=== PATIENT | female | born 1935 | race Caucasian/White ===

== ENCOUNTER 2021-01-01 09:12 | Inpatient (IN) | payer BC, MEDICARE ==
[2021-01-01] MEDS ORDERED: DEXAMETHASONE SOD PHOSPHATE 10 MG/ML 1 ML VIAL IV STA (09:23)
[2021-01-01] MEDS ORDERED: ALBUTEROL HFA INHALER INHALATION STA (09:24)
--- NOTE | 2021-01-01 09:39 | ED ---
General Adult HPI - General Chief complaint: Altered Mental Status Stated complaint: AMS Time Seen by Provider: 01/01/21 09:15 Source: patient, EMS, RN notes reviewed, old records reviewed Mode of arrival: EMS Limitations: altered mental status - History of Present Illness Initial comments: 85-year-old female presents for evaluation of altered mental status. Patient was transported by EMS, stroke scale was negative. According to EMS and the patient's family that she had noted to have some increased slurred speech this morning but has had a steady decline over the past several weeks. History is limited patient is able to answer some simple questions. She has no pain complaints. No headache. No chest pain. There is no reported fever. No na usea or vomiting. No focal numbness or weakness reported. - Related Data Home Medications Medication Instructions Recorded Confirmed Cholecalciferol [Vitamin D3 (25 25 mcg PO DAILY 01/01/21 01/01/21 Mcg = 1000 Iu)] Ferrous Sulfate [Feosol] 325 mg PO DAILY 01/01/21 01/01/21 Multivit-Min/Iron/Folic/Lutein 1 tab PO DAILY 01/01/21 01/01/21 [Centrum Silver Women Tablet] [place]-3 Fatty Acids/Fish Oil [Fish 1 cap PO DAILY 01/01/21 01/01/21 Oil 1,000 mg Softgel] Verapamil HCl [Verapamil ER] 120 mg PO DAILY 01/01/21 01/01/21 Allergies Allergy/AdvReac Type Severity Reaction Status Date / Time No Known Allergies Allergy Verified 01/01/21 10:45 Review of Systems ROS Statement: Those systems with pertinent positive or pertinent negative responses have been documented in the HPI. ROS Other: All systems not noted in ROS Statement are negative. Past Medical History Past Medical History: Hyperlipidemia, Hypertension History of Any Multi-Drug Resistant Organisms: None Reported Past Surgical History: No Surgical Hx Reported Past Psychological History: No Psychological Hx Reported Smoking Status: Never smoker Past Alcohol Use History: None Reported Past Drug Use History: None Reported General Exam General appearance: lethargic Head exam: Present: atraumatic, normocephalic Eye exam: Present: normal appearance, PERRL ENT exam: Present: mucous membranes dry Neck exam: Present: normal inspection. Absent: tenderness, meningismus Respiratory exam: Present: wheezes, decreased breath sounds. Absent: respiratory distress Cardiovascular Exam: Present: regular rate, normal rhythm GI/Abdominal exam: Present: soft. Absent: distended, tenderness, guarding Extremities exam: Present: pedal edema Neurological exam: Present: alert. Absent: oriented X3, motor sensory deficit Psychiatric exam: Present: normal affect, normal mood Skin exam: Present: warm, dry Course Vital Signs 01/01/21 01/01/21 01/01/21 09:13 09:53 10:47 Temperature 98.4 F Pulse Rate 77 86 Respiratory 20 22 Rate Blood Pressure 152/62 125/77 O2 Sat by Pulse 80 L 100 100 Oximetry EKG Findings - EKG Comments: EKG Findings:: EKG: Normal sinus rhythm, rightward axis, rate of 85, [place] interval 170, QRS duration 88, QTC 44, no ST segment elevation. Medical Decision Making - Medical Decision Making Head CT negative for intracranial hemorrhage or mass effect, shows chronic thaddeus nges with volume loss. Patient has normal CBC, CMP showing normal kidney function, elevated bicarbonate, which she does have a venous gas showing CO2 of 64. Urinalysis is positive. Chest x-ray shows a masslike density. Patient will be admitted for further evaluation and treatment multifactorial altered mental status. Case discussed with Dr. Reyes - Lab Data Result diagrams: 01/01/21 09:32 01/01/21 09:32 Lab Results 01/01/21 01/01/21 01/01/21 Range/Units 09:32 09:32 09:32 WBC 7.0 (3.8-10.6) k/uL RBC 3.98 (3.80-5.40) m/uL Hgb 12.3 (11.4-16.0) gm/dL Hct 36.9 (34.0-46.0) % MCV 92.7 (80.0-100.0) fL MCH 30.9 (25.0-35.0) pg MCHC 33.3 (31.0-37.0) g/dL RDW 13.6 (11.5-15.5) % Plt Count 197 (150-450) k/uL MPV 7.0 Neutrophils % 79 % Lymphocytes % 12 % Monocytes % 5 % Eosinophils % 2 % Basophils % 0 % Neutrophils # 5.5 (1.3-7.7) k/uL Lymphocytes # 0.9 L (1.0-4.8) k/uL Monocytes # 0.4 (0-1.0) k/uL Eosinophils # 0.2 (0-0.7) k/uL Basophils # 0.0 (0-0.2) k/uL PT 10.3 (9.0-12.0) sec INR 1.0 (<1.2) APTT 23.7 (22.0-30.0) sec VBG pH (7.31-7.41) VBG pCO2 (37-51) mmHg VBG HCO3 (24-28) mmol/L Sodium (137-145) mmol/L Potassium (3.5-5.1) mmol/L Chloride (98-107) mmol/L Carbon Dioxide (22-30) mmol/L Anion Gap mmol/L BUN (7-17) mg/dL Creatinine (0.52-1.04) mg/dL Est GFR (CKD-EPI)AfAm (>60 ml/min/1.73 sqM) Est GFR (CKD-EPI)NonAf (>60 ml/min/1.73 sqM) Glucose (74-99) mg/dL POC Glucose (mg/dL) (75-99) mg/dL POC Glu Dog Boarder ID Plasma Lactic Acid Oneil (0.7-2.0) mmol/L Calcium (8.4-10.2) mg/dL Total Bilirubin (0.2-1.3) mg/dL AST (14-36) U/L ALT (4-34) U/L Alkaline Phosphatase (38-126) U/L Lactate Dehydrogenase (313-618) U/L Troponin I (0.000-0.034) ng/mL C-Reactive Protein (<10.0) mg/L NT-Pro-B Natriuret Pep pg/mL Total Protein (6.3-8.2) g/dL Albumin (3.5-5.0) g/dL Urine Color Yellow Urine Appearance Cloudy H (Clear) Urine pH 6.0 (5.0-8.0) Ur Specific [place] 1.020 (1.001-1.035) Urine Protein 1+ H (Negative) Urine Glucose (UA) Negative (Negative) Urine Ketones Negative (Negative) Urine Blood Small H (Negative) Urine Nitrite Positive H (Negative) Urine Bilirubin Negative (Negative) Urine Urobilinogen <2.0 (<2.0) mg/dL Ur Leukocyte Esterase Trace H (Negative) Urine RBC 12 H (0-5) /hpf Urine WBC 14 H (0-5) /hpf Urine Bacteria Moderate H (None) /hpf Urine Mucus Occasional H (None) /hpf Coronavirus (PCR) (Not Detectd) 01/01/21 01/01/21 01/01/21 Range/Units 09:32 09:32 09:32 WBC (3.8-10.6) k/uL RBC (3.80-5.40) m/uL Hgb (11.4-16.0) gm/dL Hct (34.0-46.0) % MCV (80.0-100.0) fL MCH (25.0-35.0) pg MCHC (31.0-37.0) g/dL RDW (11.5-15.5) % Plt Count (150-450) k/uL MPV Neutrophils % % Lymphocytes % % Monocytes % % Eosinophils % % Basophils % % Neutrophils # (1.3-7.7) k/uL Lymphocytes # (1.0-4.8) k/uL Monocytes # (0-1.0) k/uL Eosinophils # (0-0.7) k/uL Basophils # (0-0.2) k/uL PT (9.0-12.0) sec INR (<1.2) APTT (22.0-30.0) sec VBG pH (7.31-7.41) VBG pCO2 (37-51) mmHg VBG HCO3 (24-28) mmol/L Sodium 137 (137-145) mmol/L Potassium 5.0 (3.5-5.1) mmol/L Chloride 97 L (98-107) mmol/L Carbon Dioxide 36 H (22-30) mmol/L Anion Gap 4 mmol/L BUN 23 H (7-17) mg/dL Creatinine 0.80 (0.52-1.04) mg/dL Est GFR (CKD-EPI)AfAm 77 (>60 ml/min/1.73 sqM) Est GFR (CKD-EPI)NonAf 67 (>60 ml/min/1.73 sqM) Glucose 106 H (74-99) mg/dL POC Glucose (mg/dL) (75-99) mg/dL POC Glu Dog Boarder ID Plasma Lactic Acid [place] (0.7-2.0) mmol/L Calcium 9.5 (8.4-10.2) mg/dL Total Bilirubin 0.8 (0.2-1.3) mg/dL AST 51 H (14-36) U/L ALT 26 (4-34) U/L Alkaline Phosphatase 116 (38-126) U/L Lactate Dehydrogenase 734 H (313-618) U/L Troponin I <0.012 (0.000-0.034) ng/mL C-Reactive Protein 14.9 H (<10.0) mg/L NT-Pro-B Natriuret Pep pg/mL Total Protein 7.4 (6.3-8.2) g/dL Albumin 4.2 (3.5-5.0) g/dL Urine Color Urine Appearance (Clear) Urine pH (5.0-8.0) Ur Specific [place] (1.001-1.035) Urine Protein (Negative) Urine Glucose (UA) (Negative) Urine Ketones (Negative) Urine Blood (Negative) Urine Nitrite (Negative) Urine Bilirubin (Negative) Urine Urobilinogen (<2.0) mg/dL Ur Leukocyte Esterase (Negative) Urine RBC (0-5) /hpf Urine WBC (0-5) /hpf Urine Bacteria (None) /hpf Urine Mucus (None) /hpf Coronavirus (PCR) Not Detected (Not Detectd) 01/01/21 01/01/21 01/01/21 Range/Units 09:32 09:32 09:38 WBC (3.8-10.6) k/uL RBC (3.80-5.40) m/uL Hgb (11.4-16.0) gm/dL Hct (34.0-46.0) % MCV (80.0-100.0) fL MCH (25.0-35.0) pg MCHC (31.0-37.0) g/dL RDW (11.5-15.5) % Plt Count (150-450) k/uL MPV Neutrophils % % Lymphocytes % % Monocytes % % Eosinophils % % Basophils % % Neutrophils # (1.3-7.7) k/uL Lymphocytes # (1.0-4.8) k/uL Monocytes # (0-1.0) k/uL Eosinophils # (0-0.7) k/uL Basophils # (0-0.2) k/uL PT (9.0-12.0) sec INR (<1.2) APTT (22.0-30.0) sec VBG pH 7.33 (7.31-7.41) VBG pCO2 64 H (37-51) mmHg VBG HCO3 33 H (24-28) mmol/L Sodium (137-145) mmol/L Potassium (3.5-5.1) mmol/L Chloride (98-107) mmol/L Carbon Dioxide (22-30) mmol/L Anion Gap mmol/L BUN (7-17) mg/dL Creatinine (0.52-1.04) mg/dL Est GFR (CKD-EPI)AfAm (>60 ml/min/1.73 sqM) Est GFR (CKD-EPI)NonAf (>60 ml/min/1.73 sqM) Glucose (74-99) mg/dL POC Glucose (mg/dL) 102 H (75-99) mg/dL POC Glu Dog Boarder ID Dionisio Calvo Plasma Lactic Acid [place] (0.7-2.0) mmol/L Calcium (8.4-10.2) mg/dL Total Bilirubin (0.2-1.3) mg/dL AST (14-36) U/L ALT (4-34) U/L Alkaline Phosphatase (38-126) U/L Lactate Dehydrogenase (313-618) U/L Troponin I (0.000-0.034) ng/mL C-Reactive Protein (<10.0) mg/L NT-Pro-B Natriuret Pep 1410 pg/mL Total Protein (6.3-8.2) g/dL Albumin (3.5-5.0) g/dL Urine Color Urine Appearance (Clear) Urine pH (5.0-8.0) Ur Specific [place] (1.001-1.035) Urine Protein (Negative) Urine Glucose (UA) (Negative) Urine Ketones (Negative) Urine Blood (Negative) Urine Nitrite (Negative) Urine Bilirubin (Negative) Urine Urobilinogen (<2.0) mg/dL Ur Leukocyte Esterase (Negative) Urine RBC (0-5) /hpf Urine WBC (0-5) /hpf Urine Bacteria (None) /hpf Urine Mucus (None) /hpf Coronavirus (PCR) (Not Detectd) 01/01/21 Range/Units 09:48 WBC (3.8-10.6) k/uL RBC (3.80-5.40) m/uL Hgb (11.4-16.0) gm/dL Hct (34.0-46.0) % MCV (80.0-100.0) fL MCH (25.0-35.0) pg MCHC (31.0-37.0) g/dL RDW (11.5-15.5) % Plt Count (150-450) k/uL MPV Neutrophils % % Lymphocytes % % Monocytes % % Eosinophils % % Basophils % % Neutrophils # (1.3-7.7) k/uL Lymphocytes # (1.0-4.8) k/uL Monocytes # (0-1.0) k/uL Eosinophils # (0-0.7) k/uL Basophils # (0-0.2) k/uL PT (9.0-12.0) sec INR (<1.2) APTT (22.0-30.0) sec VBG pH (7.31-7.41) VBG pCO2 (37-51) mmHg VBG HCO3 (24-28) mmol/L Sodium (137-145) mmol/L Potassium (3.5-5.1) mmol/L Chloride (98-107) mmol/L Carbon Dioxide (22-30) mmol/L Anion Gap mmol/L BUN (7-17) mg/dL Creatinine (0.52-1.04) mg/dL Est GFR (CKD-EPI)AfAm (>60 ml/min/1.73 sqM) Est GFR (CKD-EPI)NonAf (>60 ml/min/1.73 sqM) Glucose (74-99) mg/dL POC Glucose (mg/dL) (75-99) mg/dL POC Glu Dog Boarder ID Plasma Lactic Acid [place] 1.0 (0.7-2.0) mmol/L Calcium (8.4-10.2) mg/dL Total Bilirubin (0.2-1.3) mg/dL AST (14-36) U/L ALT (4-34) U/L Alkaline Phosphatase (38-126) U/L Lactate Dehydrogenase (313-618) U/L Troponin I (0.000-0.034) ng/mL C-Reactive Protein (<10.0) mg/L NT-Pro-B Natriuret Pep pg/mL Total Protein (6.3-8.2) g/dL Albumin (3.5-5.0) g/dL Urine Color Urine Appearance (Clear) Urine pH (5.0-8.0) Ur Specific [place] (1.001-1.035) Urine Protein (Negative) Urine Glucose (UA) (Negative) Urine Ketones (Negative) Urine Blood (Negative) Urine Nitrite (Negative) Urine Bilirubin (Negative) Urine Urobilinogen (<2.0) mg/dL Ur Leukocyte Esterase (Negative) Urine RBC (0-5) /hpf Urine WBC (0-5) /hpf Urine Bacteria (None) /hpf Urine Mucus (None) /hpf Coronavirus (PCR) (Not Detectd) Disposition Clinical Impression: Altered mental status, Delirium due to general medical condition, UTI (urinary tract infection) Disposition: ADMITTED IP TO THIS [facility] Condition: Stable Is patient prescribed a controlled substance at d/c from ED?: No Referrals: None,Stated [Primary Care Provider] - 1-2 days Decision to Admit Reason: Admit from EC Decision Date: 01/01/21 Decision Time: 11:17
[2021-01-01 09:41] LABS: Glucose,Whole Blood 102 mg/dL (75-99)
[2021-01-01 09:44] LABS: Basophils % (A) 0 %; Eosinophils # (A) 0.2 k/uL (0-0.7); Eosinophils % (A) 2 %; HCT 36.9 % (34.0-46.0); HGB 12.3 gm/dL (11.4-16.0); Lymphocytes # (A) 0.9 k/uL (1.0-4.8); Lymphocytes % (A) 12 %; MCH 30.9 pg (25.0-35.0); MCHC 33.3 g/dL (31.0-37.0); MCV 92.7 fL (80.0-100.0); Monocytes # (A) 0.4 k/uL (0-1.0); Monocytes % (A) 5 %; Neutrophils # (A) 5.5 k/uL (1.3-7.7); Neutrophils % (A) 79 %; Platelet Count 197 k/uL (150-450); RBC 3.98 m/uL (3.80-5.40); RDW 13.6 % (11.5-15.5); VBG PH 7.33 (7.31-7.41)
[2021-01-01 09:53] LABS: Partial Thromboplastin Time 23.7 sec (22.0-30.0); Prothrombin Time 10.3 sec (9.0-12.0)
[2021-01-01 09:55] LABS: Appearance,Urine Cloudy (Clear); Bacteria,Urine Moderate /hpf; Bilirubin,Urine Negative (Negative); Blood,Urine Small (Negative); Color,Urine Yellow; Glucose,Urine (UA) Negative (Negative); Ketones,Urine Negative (Negative); Leukocyte Esterase,Urine Trace (Negative); Mucus,Urine Occasional /hpf; Nitrite,Urine Positive (Negative); Protein,Urine 1+ (Negative); RBC,Urine 12 /hpf (0-5); Urobilinogen,Urine <2.0 mg/dL (<2.0); WBC,Urine 14 /hpf (0-5)
[2021-01-01 09:59] LABS: Albumin 4.2 g/dL (3.5-5.0); C Reactive Protein 14.9 mg/L (<10.0); Calcium 9.5 mg/dL (8.4-10.2); Total Bilirubin 0.8 mg/dL (0.2-1.3); Total Protein 7.4 g/dL (6.3-8.2)
--- NOTE | 2021-01-01 10:04 | XR ---
EXAMINATION TYPE: XR chest 1V portable DATE OF EXAM: 01/01/2021 COMPARISON: NONE HISTORY: Cough TECHNIQUE: Single frontal view of the chest is obtained. FINDINGS: There is a 3.8 mm masslike opacity in the right lung apex appears to have some rim-like daniela cification. The remainder the lungs are clear. The heart and pulmonary vasculature are normal. The osseous structures are intact. IMPRESSION: Masslike opacity in the right lung apex. CT of the thorax to be useful for further evaluation.
--- NOTE | 2021-01-01 10:57 | CT ---
EXAMINATION TYPE: CT brain wo con DATE OF EXAM: 01/01/2021 COMPARISON: None HISTORY: Altered mental status CT DLP: 1188.4 mGycm Automated exposure control for dose reduction was used. FINDINGS: The ventricles, basal cisterns and sulci over the convexities are markedly enlarged consistent with m arked generalized degenerative change. There is mild decreased density in the deep periventricular wh ite matter of both cerebral hemispheres most consistent with chronic ischemic demyelination. There is no acute intra or extra-axial hemorrhage. There is no mass effect or shift of the midline structures The posterior fossa including the brainstem, fourth ventricle and cerebellar pontine angles are gross ly normal. There is dolichoectasia and calcifications in the basilar and left vertebral arteries. The intraorbital contents appear normal and symmetric. Visualized paranasal sinuses and mastoid air cells are well aerated. There are no focal calvarial def ects. IMPRESSION: Marked degenerative changes without acute bleed or mass effect. IMPRESSION:
[2021-01-01] MEDS ORDERED: SODIUM CHLORIDE 0.9% 500 ML 500 ML IV ONE (11:01)
[2021-01-01] MEDS ORDERED: cefTRIAXone IN SWFI 1,000 MG/10 ML SYRINGE IVP STA (11:01)
[2021-01-01] MEDS ORDERED: NALOXONE 0.4 MG/ML 1 ML VIAL IV PRN (11:08)
[2021-01-01] MEDS ORDERED: MORPHINE SULFATE 2 MG/ML SYRINGE IM STA (11:53)
[2021-01-01] MEDS ORDERED: MORPHINE SULFATE 2 MG/ML SYRINGE IVP PRN (11:53)
[2021-01-01] MEDS ORDERED: ACETAMINOPHEN TAB 325 MG TAB PO PRN (11:57)
[2021-01-01] MEDS ORDERED: ONDANSETRON 4 MG/2 ML VIAL IVP PRN (11:57)
--- NOTE | 2021-01-01 12:05 | P.HPIM ---
History of Present Illness H&P Date: 01/01/21 Chief Complaint: Altered mental status This is a 85-year-old female with past medical history noted below significant for advanced dementia who presented to the emergency room with altered mental status. Patient was seen by me in the ER with her daughter at bedside. Patient is very confused and her daughter is providing most of the medical history. Apparently patient has been bedbound at home for a couple of years and did not see any doctor. Patient at baseline has advanced dementia and she is confused and usually only able to recognize her daughter. She needs assistance with her meals and activity of daily living. She was only able to transfer from her bed to the couch at home with assistance. She lives with her . She spent most of the day sleeping at home. Apparently for the last couple of days patient has been more confused and appeared uncomfortable. Her daughter told me that she heard her wheezing today. She also hasn't been eating much for the last couple of days and family decided to bring her to the emergency room for further evaluation. In the ER, computed tomography scan of the head showed no acute intracranial findings. Urinalysis showed evidence of UTI. Chest x-ray with a masslike opacity in the right lung. Patient will be admitted to the hospital for further evaluation and management. Review of Systems Unable to review other systems given altered mental status Past Medical History Past Medical History: Hyperlipidemia, Hypertension History of Any Multi-Drug Resistant Organisms: None Reported Past Surgical History: No Surgical Hx Reported Past Psychological History: No Psychological Hx Reported Smoking Status: Never smoker Past Alcohol Use History: None Reported Past Drug Use History: None Reported Medications and Allergies Home Medications Medication Instructions Recorded Confirmed Type Cholecalciferol [Vitamin D3 (25 25 mcg PO DAILY 01/01/21 01/01/21 History Mcg = 1000 Iu)] Ferrous Sulfate [Feosol] 325 mg PO DAILY 01/01/21 01/01/21 History Multivit-Min/Iron/Folic/Lutein 1 tab PO DAILY 01/01/21 01/01/21 History [Centrum Silver Women Tablet] [place]-3 Fatty Acids/Fish Oil [Fish 1 cap PO DAILY 01/01/21 01/01/21 History Oil 1,000 mg Softgel] Verapamil HCl [Verapamil ER] 120 mg PO DAILY 01/01/21 01/01/21 History Allergies Allergy/AdvReac Type Severity Reaction Status Date / Time No Known Allergies Allergy Verified 01/01/21 10:45 Physical Exam Vitals: Vital Signs Temp Pulse Resp BP Pulse Ox 01/01/21 10:47 86 22 125/77 100 01/01/21 09:53 100 01/01/21 09:13 98.4 F 77 20 152/62 80 L Intake and Output 12/31/20 01/01/21 01/01/21 22:59 06:59 14:59 Other: Weight 74.843 kg General: The patient is confused. She is closing her eyes tightly and appeared uncomfortable Eye: there is normal conjunctiva bilaterally. Neck: The neck is supple, there is no JVD. Cardiovascular: Normal S1-S2, no S3-S4, no murmurs. Respiratory: Lungs clear to anterior chest auscultation bilaterally Gastrointestinal: Abdomen is soft, there is mild tenderness to palpation Musculoskeletal: There is +1-2 pedal edema up to the ankle with some erythema Skin: Skin is warm and dry Results CBC & Chem 7: 01/01/21 09:32 01/01/21 09:32 Labs: Abnormal Lab Results - Last 24 Hours (Table) 01/01/21 01/01/21 01/01/21 Range/Units 09:32 09:32 09:32 Lymphocytes # 0.9 L (1.0-4.8) k/uL VBG pCO2 (37-51) mmHg VBG HCO3 (24-28) mmol/L Chloride 97 L (98-107) mmol/L Carbon Dioxide 36 H (22-30) mmol/L BUN 23 H (7-17) mg/dL Glucose 106 H (74-99) mg/dL POC Glucose (mg/dL) (75-99) mg/dL AST 51 H (14-36) U/L Lactate Dehydrogenase 734 H (313-618) U/L C-Reactive Protein 14.9 H (<10.0) mg/L Urine Appearance Cloudy H (Clear) Urine Protein 1+ H (Negative) Urine Blood Small H (Negative) Urine Nitrite Positive H (Negative) Ur Leukocyte Esterase Trace H (Negative) Urine RBC 12 H (0-5) /hpf Urine WBC 14 H (0-5) /hpf Urine Bacteria Moderate H (None) /hpf Urine Mucus Occasional H (None) /hpf 03/13/21 03/13/21 Range/Units 09:32 09:38 Lymphocytes # (1.0-4.8) k/uL VBG pCO2 64 H (37-51) mmHg VBG HCO3 33 H (24-28) mmol/L Chloride (98-107) mmol/L Carbon Dioxide (22-30) mmol/L BUN (7-17) mg/dL Glucose (74-99) mg/dL POC Glucose (mg/dL) 102 H (75-99) mg/dL AST (14-36) U/L Lactate Dehydrogenase (313-618) U/L C-Reactive Protein (<10.0) mg/L Urine Appearance (Clear) Urine Protein (Negative) Urine Blood (Negative) Urine Nitrite (Negative) Ur Leukocyte Esterase (Negative) Urine RBC (0-5) /hpf Urine WBC (0-5) /hpf Urine Bacteria (None) /hpf Urine Mucus (None) /hpf Assessment and Plan Assessment: This is a 85-year-old female who was brought in to the emergency room with worsening confusion and altered mental status. Patient was evaluated in the ER and admitted to the hospital for further management of her medical problems noted below. 1. Acute toxo metabolic encephalopathy: Computed tomography scan of the head in the ER showed no acute intracranial findings with marked degenerative changes 2. Urinary tract infection: Started on IV cefazolin awaiting urine culture 3. Bilateral lower extremity cellulitis, covered with IV cefazolin. We will continue to monitor closely. 4. Acute on chronic hypercapnic respiratory failure. I would obtain arterial blood gas for further evaluation 5. Reactive airway disease with wheezing, continue albuterol nebulizers every 4 hours 6. Right upper lobe masslike opacity involving the right lung measuring ap proximately 3.8 mm: Discussed with the patient daughter that may represent possible malignancy. They would not like to pursue any further testing, diagnostic, or treatment 7. Underlying advanced dementia of unknown type. 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 DVT prophylaxis with subcu Lovenox 9. CODE STATUS: Patient is DNR/DNI. Discussed with her daughter at bedside Today, I reviewed her medication list and lab work results. Start IV fluid hydration with D5/half-normal saline at 75 mL per hour. Repeat lab work in the morning. 2 mg IV morphine every 4 hours as needed. Time with Patient: Greater than 30
--- NOTE | 2021-01-01 12:07 | P.PN ---
Progress Note - Text Progress Note Date: 01/01/21 Today, I had a prolonged discussion with the patient daughter at bedside regarding her current clinical presentation. We discussed her baseline functional status and underlying advanced dementia. We discussed options of treatment and diagnostics. Her daughter would like the mother to be comfortable and is leaning more towards comfort care. She does not want any aggressive measures or diagnostics. She wants her mother to be DO NOT RESUSCITATE/DO NOT INTUBATE. She is also open to consider hospice at this point of time and believe that her father is unable to take care of patient anymore. We discussed a strategy to treat current acute infection including cellulitis and UTI and see how the patient progresses over the next 24-48 hours. If no improvement may consider hospice care. I answered all of her questions to her satisfaction. Time spent >16 minutes
[2021-01-01] MEDS: DEXTROSE 5%-0.45% NACL 1,000 ML IV SCH (12:47)
[2021-01-01] MEDS: ALBUTEROL NEBULIZED 2.5 MG/3 ML INHALATION SCH ×5 (13:12→23:43)
[2021-01-01 16:47] LABS: ABG HCO3 33 mmol/L (21-25); ABG Oxygen Saturation 99.2 % (94-97); ABG PO2 123 mmHg (83-108); ABG TCO2 36 mmol/L (19-24); Allen Test Performed? Yes
[2021-01-01 17:09] LABS: ABG PCO2 86 mmHg (35-45)
[2021-01-02] MEDS: DEXTROSE 5%-0.45% NACL 1,000 ML IV SCH ×2 (00:20→09:09)
[2021-01-02] MEDS: ALBUTEROL NEBULIZED 2.5 MG/3 ML INHALATION SCH ×4 (03:19→19:06)
--- NOTE | 2021-01-02 08:52 | P.PN ---
Subjective Progress Note Date: 01/02/21 Patient is doing a lot better this morning. She is awake and alert. She was very pleasant and answering questions appropriately. She was on BiPAP overnight Objective - Vital Signs Vital signs: Vital Signs Temp 99.7 F H 01/02/21 01:27 Pulse 80 01/02/21 07:58 Resp 18 01/02/21 01:27 BP 95/59 01/02/21 01:27 Pulse Ox 97 01/02/21 07:45 Intake & Output 01/01/21 01/02/21 01/02/21 17:59 06:59 18:59 Intake Total Output Total Balance Weight Intake: Intake, IV Titration Amount Dextrose 5%-0.45% NaCl 1, 000 ml @ 100 mls/hr IV . Q10H GARY Rx#:[id number] ceFAZolin 2 gm In Sodium Chloride 0.9% 50 ml @ 100 mls/hr IVPB Q8HR GARY Rx# :[id number] Output: Urine Other: Voiding Method - Exam General: The patient is awake and alert, in no distress Eye: there is normal conjunctiva bilaterally. Neck: The neck is supple, there is no JVD. Cardiovascular: Normal S1-S2, no S3-S4, no murmurs. Respiratory: Lungs clear to auscultation bilaterally Gastrointestinal: Abdomen is soft, nontender Musculoskeletal: There is no pedal edema. Neurological:. Speech is normal. Skin: Skin is warm and dry - Labs CBC & Chem 7: 01/01/21 09:32 01/01/21 09:32 Labs: Abnormal Lab Results - Last 24 Hours (Table) 01/01/21 01/01/21 01/01/21 Range/Units 09:32 09:32 09:32 Lymphocytes # 0.9 L (1.0-4.8) k/uL ABG pH (7.35-7.45) ABG pCO2 (35-45) mmHg ABG pO2 (83-108) mmHg ABG HCO3 (21-25) mmol/L ABG Total CO2 (19-24) mmol/L ABG O2 Saturation (94-97) % VBG pCO2 (37-51) mmHg VBG HCO3 (24-28) mmol/L Chloride 97 L (98-107) mmol/L Carbon Dioxide 36 H (22-30) mmol/L BUN 23 H (7-17) mg/dL Glucose 106 H (74-99) mg/dL POC Glucose (mg/dL) (75-99) mg/dL AST 51 H (14-36) U/L Lactate Dehydrogenase 734 H (313-618) U/L C-Reactive Protein 14.9 H (<10.0) mg/L Urine Appearance Cloudy H (Clear) Urine Protein 1+ H (Negative) Urine Blood Small H (Negative) Urine Nitrite Positive H (Negative) Ur Leukocyte Esterase Trace H (Negative) Urine RBC 12 H (0-5) /hpf Urine WBC 14 H (0-5) /hpf Urine Bacteria Moderate H (None) /hpf Urine Mucus Occasional H (None) /hpf 01/01/21 01/01/21 01/01/21 Range/Units 09:32 09:38 16:35 Lymphocytes # (1.0-4.8) k/uL ABG pH 7.20 L (7.35-7.45) ABG pCO2 86 H* (35-45) mmHg ABG pO2 123 H (83-108) mmHg ABG HCO3 33 H (21-25) mmol/L ABG Total CO2 36 H (19-24) mmol/L ABG O2 Saturation 99.2 H (94-97) % VBG pCO2 64 H (37-51) mmHg VBG HCO3 33 H (24-28) mmol/L Chloride (98-107) mmol/L Carbon Dioxide (22-30) mmol/L BUN (7-17) mg/dL Glucose (74-99) mg/dL POC Glucose (mg/dL) 102 H (75-99) mg/dL AST (14-36) U/L Lactate Dehydrogenase (313-618) U/L C-Reactive Protein (<10.0) mg/L Urine Appearance (Clear) Urine Protein (Negative) Urine Blood (Negative) Urine Nitrite (Negative) Ur Leukocyte Esterase (Negative) Urine RBC (0-5) /hpf Urine WBC (0-5) /hpf Urine Bacteria (None) /hpf Urine Mucus (None) /hpf Microbiology - Last 24 Hours (Table) 01/01/21 09:32 Urine Culture - Preliminary Urine,Voided Assessment and Plan Assessment: This is a 85-year-old female who was brought in to the emergency room with worsening confusion and altered mental status. Patient was evaluated in the ER and admitted to the hospital for further management of her medical problems noted below. 1. Acute toxo metabolic encephalopathy: Secondary to underlying UTI and acute hypercarbia. Computed tomography scan of the head in the ER showed no acute intracranial findings with marked degenerative changes 2. Urinary tract infection: Started on IV cefazolin awaiting urine culture 3. Bilateral lower extremity cellulitis, covered with IV cefazolin. We will continue to monitor closely. 4. Acute on chronic hypercapnic respiratory failure. Improved significantly with BiPAP 5. Reactive airway disease with wheezing, continue albuterol nebulizers every 4 hours 6. Right upper lobe masslike opacity involving the right lung measuring approximately 3.8 mm: Discussed with the patient daughter that may represent possible malignancy. They would not like to pursue any further testing, diagnostic, or treatment 7. Underlying advanced dementia of unknown type. 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 DVT prophylaxis with subcu Lovenox 9. CODE STATUS: Patient is DNR/DNI. Discussed with her daughter at bedside Today, I reviewed her medication list and lab work results. I asked nursing staff to assist patient with meals. I called Eva her daughter on the phone and updated her about her mother clinical improvement. Patient would qualify for palliative care which I would give her referral to. Continue current management otherwise. Anticipate discharge home tomorrow. Repeat lab work in the morning. 2 mg IV morphine every 4 hours as needed.
[2021-01-02] MEDS: ENOXAPARIN 40 MG/0.4 ML SYRINGE SQ SCH (08:53)
[2021-01-02] MEDS ORDERED: NON FORMULARY DRUG (Omega-3 Fatty Acids/Fish Oil [Fish Oil 1,000 Mg Softgel] 1 EACH Capsul PO SCH (09:00)
[2021-01-02] MEDS ORDERED: VERAPAMIL HCL 240 MG PO SCH (09:00)
[2021-01-02] MEDS ORDERED: ALBUTEROL NEBULIZED 2.5 MG/3 ML INHALATION SCH (09:00)
[2021-01-02] MEDS: FERROUS SULFATE 325 MG TAB PO SCH (09:11)
[2021-01-02] MEDS: CHOLECALCIFEROL 25 MCG (1000 IU) TABLET PO SCH (09:12)
[2021-01-02] MEDS: MULTIVITAMINS, THERA 1 EACH TAB PO SCH (09:12)
[2021-01-03] MEDS: ALBUTEROL NEBULIZED 2.5 MG/3 ML INHALATION SCH ×3 (02:04→12:08)
[2021-01-03 07:32] VITALS: RESP 18
[2021-01-03] MEDS: FERROUS SULFATE 325 MG TAB PO SCH (09:16)
[2021-01-03] MEDS: MULTIVITAMINS, THERA 1 EACH TAB PO SCH (09:16)
[2021-01-03] MEDS: ENOXAPARIN 40 MG/0.4 ML SYRINGE SQ SCH (09:16)
[2021-01-03] MEDS: CHOLECALCIFEROL 25 MCG (1000 IU) TABLET PO SCH (09:16)
[2021-01-03 09:35] LABS: African American GFR (CKD) 77.4 (60.0-200.0); Anion Gap 8.8 mmol/L (4.00-12.00); BUN/Creat Ratio 33.75 Ratio (12.00-20.00); Calcium 8.8 mg/dL (8.7-10.3); Carbon Dioxide 30.2 mmol/L (21.6-31.8); Non-African American GFR(CKD) 66.8 (60.0-200.0); Potassium 4.4 mmol/L (3.5-5.5)
[2021-01-03 09:44] LABS: Basophils # (A) 0.02 X 10*3/uL (0.00-0.10); Basophils % (A) 0.3 %; Eosinophils # (A) 0.25 X 10*3/uL (0.04-0.35); Eosinophils % (A) 3.5 %; HCT 35.1 % (37.2-46.3); HGB 10.9 g/dL (12.0-15.0); Lymphocytes # (A) 0.82 X 10*3/uL (0.90-5.00); Lymphocytes % (A) 11.4 %; MCH 29.9 pg (27.0-32.0); MCHC 31.1 g/dL (32.0-37.0); MCV 96.2 fL (80.0-97.0); Mean Platelet Volume 8.9 fL (9.5-12.2); Monocytes # (A) 0.54 X 10*3/uL (0.20-1.00); Monocytes % (A) 7.5 %; Neutrophils # (A) 5.55 X 10*3/uL (1.80-7.70); Neutrophils % (A) 76.7 %; Platelet Count 178 X 10*3/uL (140-440); RBC 3.65 X 10*6/uL (4.10-5.20); RDW 13.2 % (11.5-14.5); WBC 7.22 X 10*3/uL (4.50-10.00)
[2021-01-03] MEDS ORDERED: haloperidoL 1 MG TAB PO PRN (10:44)
[2021-01-03] MEDS: CEPHALEXIN 500 MG CAP PO SCH ×2 (13:26→17:26)
--- NOTE | 2021-01-03 13:47 | P.PN ---
Subjective Progress Note Date: 01/03/21 Patient is awake and alert today. Nursing staff informed me that she was a little bit agitated last night. She pulled out her IV. She is continent uncooperative this morning. She does not have any specific complaints or concerns. Objective - Vital Signs Vital signs: Vital Signs Temp 98.5 F 01/03/21 07:31 Pulse 93 01/03/21 12:17 Resp 18 01/03/21 07:31 BP 185/90 01/03/21 07:31 Pulse Ox 94 L 01/03/21 07:31 Intake & Output 01/02/21 01/03/21 01/03/21 18:59 06:59 18:59 Output Total 500 Balance -500 Output: Urine 500 Other: Voiding Method Indwelling Catheter Indwelling Catheter Diaper Incontinent - Exam General: The patient is awake and alert, in no distress Eye: there is normal conjunctiva bilaterally. Neck: The neck is supple, there is no JVD. Cardiovascular: Normal S1-S2, no S3-S4, no murmurs. Respiratory: Lungs clear to auscultation bilaterally Gastrointestinal: Abdomen is soft, nontender Musculoskeletal: There is no pedal edema. Neurological:. Speech is normal. Skin: Skin is warm and dry - Labs CBC & Chem 7: 01/03/21 05:33 01/03/21 05:33 Labs: Abnormal Lab Results - Last 24 Hours (Table) 01/03/21 01/03/21 Range/Units 05:33 05:33 RBC 3.65 L (4.10-5.20) X 10*6/uL Hgb 10.9 L (12.0-15.0) g/dL Hct 35.1 L (37.2-46.3) % MCHC 31.1 L (32.0-37.0) g/dL MPV 8.9 L (9.5-12.2) fL Lymphocytes # 0.82 L (0.90-5.00) X 10*3/uL BUN/Creatinine Ratio 33.75 H (12.00-20.00) Ratio Microbiology - Last 24 Hours (Table) 01/01/21 09:32 Blood Culture - Preliminary Blood No Growth after 48 hours 01/01/21 09:32 Urine Culture - Preliminary Urine,Voided Gram Neg Bacilli Assessment and Plan Assessment: This is a 85-year-old female who was brought in to the emergency room with worsening confusion and altered mental status. Patient was evaluated in the ER was found to be completely obtunded and unresponsive. She was admitted to the hospital for further management of her medical problems noted below. 1. Acute toxo metabolic encephalopathy: Now resolved. Secondary to underlying UTI and acute hypercarbia. Computed tomography scan of the head in the ER showed no acute intracranial findings with marked degenerative changes 2. Urinary tract infection: Started on IV cefazolin. Urine culture showed gram-negative bacilli awaiting final identification and susceptibility. I transitioned patient to oral Keflex a day as she pulled her IV 2 times 3. Bilateral lower extremity cellulitis, improved significantly. We will continue to monitor closely. 4. Acute on chronic hypercapnic respiratory failure. Improved significantly with BiPAP 5. Reactive airway disease with wheezing, continue albuterol nebulizers as needed 6. Right upper lobe masslike opacity involving the right lung measuring approximately 3.8 mm: Discussed with the patient daughter that may represent possible malignancy. They would not like to pursue any further testing, diagnostic, or treatment 7. Underlying advanced dementia of unknown type. 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 DVT prophylaxis with subcu Lovenox 9. CODE STATUS: Patient is DNR/DNI. Discussed with her daughter at bedside Today, I reviewed her medication list and lab work results. I discussed placement with social work and top case assembler. Her family are unable to take care of her and would like her to be placed to ECF and possibly open for hospice over there. Placement in process awaiting an update from social work.
[2021-01-03 15:13] VITALS: BP 174/84; PULSE 77; TEMP 98.1
[2021-01-03] MEDS ORDERED: ALPRAZolam 0.5 MG TAB PO STA (15:13)
--- NOTE | 2021-01-03 15:18 | P.DS ---
Providers Date of admission: 01/01/21 11:14 Expected date of discharge: 01/03/21 Attending physician: Otto Reyes Primary care physician: Stated None Hospital Course: This is a 85-year-old female who was brought in to the emergency room with worsening confusion and altered mental status. Patient was evaluated in the ER was found to be completely obtunded and unresponsive. She was admitted to the hospital for further management of her medical problems noted below. 1. Acute toxo metabolic encephalopathy: Now resolved. Secondary to underlying UTI and acute hypercarbia. Computed tomography scan of the head in the ER showed no acute intracranial findings with marked degenerative changes 2. Urinary tract infection: Started on IV cefazolin. Urine culture showed gram-negative bacilli awaiting final identification and susceptibility. transitioned patient to oral Keflex a day as she pulled her IV 2 times 3. Bilateral lower extremity cellulitis, improved significantly. 4. Acute on chronic hypercapnic respiratory failure. 5. Reactive airway disease with wheezing, continue albuterol nebulizers as needed 6. Right upper lobe masslike opacity involving the right lung measuring approximately 3.8 mm: Discussed with the patient daughter that may represent possible malignancy. They would not like to pursue any further testing, diagnostic, or treatment 7. Underlying advanced dementia of unknown type. 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 CODE STATUS: Patient is DNR/DNI. Discussed with her daughter at bedside Patient will be discharged to [facility] with plan to enroll in hospice Patient Condition at Discharge: Poor Plan - Discharge Summary Discharge Rx Participant: Yes New Discharge Prescriptions: New Cephalexin [Keflex] 500 mg PO QID 3 Days #12 cap Continue Ferrous Sulfate [Iron (65 MG Elemental)] 325 mg PO DAILY Cholecalciferol [Vitamin D3 (25 Mcg = 1000 Iu)] 25 mcg PO DAILY Verapamil HCl [Verapamil ER] 120 mg PO DAILY [place]-3 Fatty Acids/Fish Oil [Fish Oil 1,000 mg Softgel] 1 cap PO DAILY Multivit-Min/Iron/Folic/Lutein [Centrum Silver Women Tablet] 1 tab PO DAILY Discharge Medication List Cholecalciferol [Vitamin D3 (25 Mcg = 1000 Iu)] 25 mcg PO DAILY 01/01/21 [History] Ferrous Sulfate [Iron (65 MG Elemental)] 325 mg PO DAILY 01/01/21 [History] Multivit-Min/Iron/Folic/Lutein [Centrum Silver Women Tablet] 1 tab PO DAILY 01/01/21 [History] [place]-3 Fatty Acids/Fish Oil [Fish Oil 1,000 mg Softgel] 1 cap PO DAILY 01/01/21 [History] Verapamil HCl [Verapamil ER] 120 mg PO DAILY 01/01/21 [History] Cephalexin [Keflex] 500 mg PO QID 3 Days #12 cap 01/03/21 [Rx] Follow up Appointment(s)/Referral(s): [facility] [NON-STAFF] - None,Stated [Primary Care Provider] - 1-2 days Discharge Disposition: TRANSFER TO SNF/ECF
== END 2021-01-03 17:33 | DRG 689 ==
LOC: EC 09:12 → 4SSUR 11:14
PROVIDERS: ADMIT Internal Medicine; ATTEND Internal Medicine
DX: N39.0 Urinary tract infection, site not specified (principal); G93.41 Metabolic encephalopathy; J96.22 Acute and chronic respiratory failure with hypercapnia; F05 Delirium due to known physiological condition; L03.115 Cellulitis of right lower limb; L03.116 Cellulitis of left lower limb; B96.89 Other specified bacterial agents as the cause of diseases classified elsewhere; E78.5 Hyperlipidemia, unspecified; F02.80 Dementia in other diseases classified elsewhere, unspecified severity, without behavioral disturbance, psychotic disturbance, mood disturbance, and anxiety; G30.9 Alzheimer's disease, unspecified; I10 Essential (primary) hypertension; J45.909 Unspecified asthma, uncomplicated; Z51.5 Encounter for palliative care; Z66 Do not resuscitate; Z20.822 Contact with and (suspected) exposure to COVID-19; Z74.01 Bed confinement status; R91.8 Other nonspecific abnormal finding of lung field; Z79.899 Other long term (current) drug therapy
CPT/HCPCS: 36415; 36600; 51702; 70450; 71045; 80048; 80053; 81001; 82803; 82805; 83605; 83615; 83880; 84484; 85025; 85610; 85730; 86140; 87040; 87077; 87086; 87186; 87635; 93005; 94640; 94660; 94760; 96361; 96372; 96374; 96375; 99285